=== PATIENT | female | born 1995 | race Caucasian/White ===

== ENCOUNTER 2016-05-03 08:50 | Inpatient (IN) | payer OTHER ==
[~2016-05-03] VITALS: Ht 165.1 cm; Wt 84.5 kg
[2016-05-03] MEDS ORDERED: LACTATED RINGER'S 1000ML 1,000 ML IV PRN (09:48)
[2016-05-03] MEDS: LACTATED RINGER'S 1000ML 1,000 ML IV SCH ×2 (09:48→15:55)
[2016-05-03] MEDS ORDERED: LACTATED RINGER'S 1000ML 500 ML IV PRN ×2 (10:02→13:58)
[2016-05-03] MEDS ORDERED: OXYTOCIN 30 UNITS/500ML NSS IV PRN ×2 (10:15→22:15)
[2016-05-03 10:53] LABS: HEMATOCRIT 36.2 % (37-47); MEAN CELL VOLUME 90.5 fL (80-100); MEAN CORPUSCULAR HEMOGLOBIN 29.8 pg (25-34); MEAN CORPUSCULAR HGB CONC 32.9 g/dl (32-36); PLATELET COUNT 181 K/uL (130-400); WHITE BLOOD COUNT 9.15 K/uL (4.8-10.8)
[2016-05-03 11:09] VITALS: Ht 165.1 cm; Wt 84.5 kg
[2016-05-03] MEDS ORDERED: FOLIC ACID (11:15)
[2016-05-03] MEDS ORDERED: EpHEDrine SULFATE INJ 50 MG/ML AMP ONE (13:46)
[2016-05-03] MEDS ORDERED: BUPIVACAINE 0.25% 30 ML VIAL ONE (13:46)
[2016-05-03] MEDS ORDERED: FENTANYL 2MCG/ML ROPIV 1.25MG/ML 100ML BAG EPI ONE (13:47)
[2016-05-03] MEDS ORDERED: FENTANYL CITRATE INJ 50 MCG/1 ML 2 ML VIAL ONE (13:47)
[2016-05-03] MEDS ORDERED: NALOXONE HCL INJ 1 MG in SODIUM CHLORIDE 0.9% 1000ML 1,000 ML IV PRN (13:58)
[2016-05-03] MEDS ORDERED: ONDANSETRON INJ 2 MG/ML 2 ML VIAL IV PRN (14:00)
[2016-05-03] MEDS ORDERED: NALBUPHINE HCL INJ 10 MG/ML AMP IV PRN (14:00)
[2016-05-03] MEDS ORDERED: NALOXONE HCL INJ 0.4 MG/1 ML VIAL/CARP IV PRN (14:00)
[2016-05-03] MEDS ORDERED: EpHEDrine SULFATE INJ 50 MG/ML AMP IV PRN (14:00)
[2016-05-03] MEDS ORDERED: FENTANYL 2MCG/ML ROPIV 1.25MG/ML 100ML BAG EPI PRN (14:00)
[2016-05-03] MEDS ORDERED: DiphenhydrAMINE HCL 50 MG/ML VIAL IV PRN (14:00)
[2016-05-03] MEDS ORDERED: LANOLIN OINT EXT PRN ×2 (22:15)
[2016-05-03] MEDS ORDERED: ACETAMINOPHEN/CODEINE 300/30MG TAB PO PRN ×2 (22:15)
[2016-05-03] MEDS ORDERED: BENZOCAINE 20% AER SPR 82.5 GM CAN EXT PRN (22:15)
[2016-05-03] MEDS ORDERED: SUPERCREAM 0.870 % 15GM JAR EXT PRN (22:15)
[2016-05-03] MEDS ORDERED: HYDROCORTISONE ACETATE 25 MG SUPP PR PRN (22:15)
[2016-05-03 22:42] LABS: BASO % 0.1 %; BASO ABS # 0.02 K/uL (0-0.2); COMPLETE YES; HEMATOCRIT 28.4 % (37-47); IG% 0.2 %; LYMPH % 5.3 %; LYMPH ABS # 1.14 K/uL (1.2-3.4); MEAN CELL VOLUME 89.6 fL (80-100); MEAN CORPUSCULAR HGB CONC 33.5 g/dl (32-36); MEAN PLATELET VOLUME 13.4 fL (7.4-10.4); MONO % 7.7 %; NEUT % 86.7 %; PLATELET COUNT 175 K/uL (130-400); RED BLOOD COUNT 3.17 M/uL (4.2-5.4); WHITE BLOOD COUNT 21.36 K/uL (4.8-10.8)
[2016-05-03] MEDS ORDERED: IBUPROFEN 600 MG TAB ONE (23:57)
--- NOTE | 2016-05-04 01:09 | DELIVERY SUMMARY ---
DATE OF OPERATION: 05/03/2016 DELIVERING SURGEON: Dr. Ortega. PREDELIVERY DIAGNOSES: 1. A 20-year-old G1, P0, at 40 weeks, 6 days. 2. premature rupture of membranes. POSTDELIVERY DIAGNOSIS: Same. FINDINGS: Viable female , Apgars 8 and 8, weight pending. ESTIMATED BLOOD LOSS: 400 mL. PROCEDURE: Spontaneous vaginal delivery with repair of bilateral sulcal tears and second-degree perineal repair. COMPLICATIONS: None. DETAILS OF PROCEDURE: The patient progressed to complete with epidural analgesia, she then pushed and spontaneously vaginally delivered a viable female with Apgars 8 and 8 and the baby delivered in the occiput anterior position. The head was allowed to restitute to a left occiput anterior position. The mother pushed and the anterior shoulder delivered followed by the posterior shoulder. Baby was placed on mother's abdomen where the cord was doubly clamped and cut. A spontaneous cry was heard. A cord segment was retained for cord gases. Cord blood was obtained. The placenta delivered spontaneously, intact with a 3-vessel cord. Pitocin was given and the uterus became firm. The uterus and vagina were swept for all clots and debris. The cervix, vagina and perineum were inspected and bilateral sulcal tears and a second-degree perineal tear were noted and repaired in standard fashion with 3-0 Vicryl. Excellent hemostasis was observed. At the conclusion of the delivery, all sponge, instrument and needle counts were correct x2. The mother and baby recovered well in the room in stable and good condition. I attest to the content of the Intraoperative Record and any orders documented therein. Any exceptio ns are noted below.
[2016-05-04 03:19] VITALS: BP 108/59; PULSE 113; TEMP 37
[2016-05-04 07:56] VITALS: BP 90/55; PULSE 105; TEMP 37; O2SAT 97
[2016-05-04] MEDS: DOCUSATE SODIUM 100 MG CAP PO SCH ×2 (08:57→21:07)
--- NOTE | 2016-05-04 11:28 | Anesthesia Procedure Note ---
Anesthesia Epidural Removal Nt Date & Time May 04, 2016 at 11:28 Vital Signs Pain Intensity: 3.0 Vital Signs Past 12 Hours Date Time Temp Pulse Resp B/P Pulse Ox O2 Delivery O2 Flow Rate FiO2 05/04/16 08:00 Room Air 05/04/16 07:56 37.0 105 16 90/55 97 Room Air 05/04/16 03:21 Room Air 05/04/16 03:19 37.0 113 18 108/59 Room Air Notes Mental Status: alert / awake / arousable, participated in evaluation Nausea / Vomiting: adequately controlled Pain: adequately controlled Airway Patency, RR, SpO2: stable & adequate BP & HR: stable & adequate Hydration State: stable & adequate Neuraxial Anesthesia: was administered Anesthetic Complications: no major complications apparent, pt satisfied with anesthetic care Epidural: removed without complications, with tip intact
[2016-05-04 12:00] VITALS: BP 114/75; PULSE 107; TEMP 36.9
[2016-05-04] MEDS: IBUPROFEN 600 MG TAB PO PRN ×2 (12:23→18:48)
[2016-05-04 15:57] VITALS: BP 127/77; PULSE 105; TEMP 36.9; O2SAT 98
[2016-05-04] MEDS ORDERED: BISACODYL 5 MG TABEC PO SCH (20:00)
[2016-05-04 20:10] VITALS: BP 115/76; PULSE 108; TEMP 36.8; O2SAT 98
[2016-05-04 23:45] VITALS: BP 117/76; PULSE 101; TEMP 36.7; O2SAT 100
--- NOTE | 2016-05-05 06:38 | Progress Note ---
Subjective May 05, 2016. Subjective conversation w/ patient, physical exam Ambulation: ambulating normally Voiding: no voiding problems Passing Gas: Yes Diet Tolerance: Regular Diet Lochia: Small Feeding Type: Breast Feeding Pain: No pain reported this morning Review of Systems Constitutional: No chills, No fever Respiratory: No cough, No shortness of breath Cardiac: No chest pain Breast: No breast pain Abdomen: No nausea, No pain, No vomiting Female : No dysuria Objective Vital Signs Date Time Temp Pulse Resp B/P Pulse Ox O2 Delivery O2 Flow Rate FiO2 05/04/16 23:45 36.7 101 18 117/76 100 Room Air 05/04/16 23:45 100 Room Air 05/04/16 20:10 36.8 108 20 115/76 98 Room Air 05/04/16 16:00 Room Air 05/04/16 15:57 36.9 105 16 127/77 98 Room Air 05/04/16 12:00 36.9 107 18 114/75 Room Air 05/04/16 08:00 Room Air 05/04/16 07:56 37.0 105 16 90/55 97 Room Air Physical Exam General Appearance: WELL-APPEARING, WD/WN, NO APPARENT DISTRESS Respiratory/Chest: lungs clear, normal breath sounds Cardiovascular: regular rate, rhythm, no gallop, no murmur Abdomen: normal bowel sounds, non tender, soft Fundus: Firm, Relation to Umbilicus (At umbilicus) Extremities: no calf tenderness Laboratory Results Last 24 Hours Test 05/04/16 06:46 Hemoglobin 7.4 g/dL Hematocrit 22.0 % Medications Current Inpatient Medications Medications (Trade) Dose Ordered Sig/Patty Route Start Time Stop Time Status Last Admin Dose Admin Lactated Ringer's (Lr 1000ml) 1,000 ml @ 125 mls/hr Q8H IV 05/03/16 09:48 05/05/16 09:47 05/03/16 15:55 125 MLS/HR Oxytocin (Pitocin IV) 30 units UD PRN IV 05/03/16 22:15 06/02/16 22:14 Benzocaine (Dermoplast Aero Spr) 1 appln PRN PRN EXT 05/03/16 22:15 06/02/16 22:14 Cocaine HCl (Supercream 0.870% Cr) BID PRN EXT 05/03/16 22:15 05/17/16 22:14 05/04/16 21:08 15 GM Hydrocortisone Acetate (Anusol Hc Supp) 25 mg BID PRN HI 05/03/16 22:15 06/02/16 22:14 Lanolin (Lanolin Oint) PRN PRN EXT 05/03/16 22:15 06/02/16 22:14 Ibuprofen (Motrin Tab) 600 mg Q4H PRN PO 05/03/16 22:15 06/02/16 22:14 05/04/16 18:48 600 MG Acetaminophen/ Codeine Phosphate (Tylenol w/ Codeine #3 Tab) 1 tab Q4H PRN PO 05/03/16 22:15 06/02/16 22:14 05/04/16 05:47 1 TAB Acetaminophen/ Codeine Phosphate (Tylenol w/ Codeine #3 Tab) 2 tab Q4H PRN PO 05/03/16 22:15 06/02/16 22:14 Bisacodyl (Dulcolax Supp) 10 mg DAILY PRN HI 05/05/16 07:00 Docusate Sodium (coLACE CAP) 100 mg BID PO 05/04/16 08:00 06/03/16 07:59 05/04/16 21:07 100 MG Assessment and Plan Post- Day#: 1 Continue Routine Care: - Vital Signs reviewed and WNL (temp max 36.7) - Blood Type: O+, GBS- , Rubella Immune - Patient doing well clinically - Encourage Ambulation today - Pain well controlled with Motrin - Tolerating PO Diet - Discharge today Resident Physician Supervision Note: I interviewed and examined the patient. Discussed with Dr. Llanos and agree with findings and plan as documented in the note. Any exceptions or clarifications are listed here: [None] Documented By: [place]
--- NOTE | 2016-05-05 06:40 | Discharge Instructions ---
Discharge Instructions Admission Reason for Admission: R/O Ruptured Membranes Discharge Discharge Diagnosis / Problem: Vaginal Delivery Discharge Goals Goal(s): Routine recovery after delivery Medications Continue Dispensed Medications: supercream, dermaplast, tucks, lansinoh Activity Recommendations Activity Limitations: per Instructions/Follow-up section . Instructions / Follow-Up Instructions / Follow-Up ACTIVITY RECOMMENDATIONS: * Gradual return to full activity over the next 2-3 weeks. * No lifting - nothing heavier than baby over the next 2-3 weeks. * Do not engage in vigorous exercise, sexual activity or sports until cleared by your physician. * Do not drive or operate any motorized equipment until cleared by your physician. * You may shower/bathe daily. MEDICATIONS: For discomfort or pain, you may use Acetaminophen (Tylenol), Ibuprofen (Advil), or Naproxen (Aleve) following the package directions. For constipation you may use Colace following the package directions. BREAST CARE: If you are not breast feeding: * Wear a supportive bra 24 hours a day for one to two weeks. * Avoid stimulating your breasts and nipples as much as possible during the first few weeks after delivery. * When taking a shower, have the warm water hit your back, not breasts. * When your breasts feel full, apply ice packs. Usually three to four times a day helps ease the discomfort. * Take a mild pain medication (Tylenol / Motrin) when you are uncomfortable. If breast feeding: * Use breast milk to lubricate nipples. Lansinoh cream may be used for sore nipples. You do not need to remove cream prior to breast feeding. If using a different brand of cream, check the label for directions regarding removal of cream prior to nursing. * Wear a supportive bra. * If having problems with breasts or breast feeding, call a medical record consultant or your health care provider. EPISIOTOMY CARE: After delivery, if you have an episiotomy (stitches), the following steps will ease discomfort and aid healing. * For the first 24 hours after delivery, place ice packs next to your episiotomy to help reduce swelling. * After the first 24 hour-period, sitz baths, either portable or in the tub, are suggested. A shower with a shower arm sprayed over the episiotomy may be comforting. * Sudha care should be done after each voiding and bowel movement. Squirt warm water from a plastic bottle over the perineum (region of the body between the anus and urinary opening) and pat dry. * Use Dermoplast to ease discomfort. Shake container. [place] directly over the episiotomy. Place a Tucks on a clean sanitary pad next to your episiotomy. SPECIAL CARE INSTRUCTIONS: When you are discharged from the hospital, it is important for you to follow the instructions listed below: * During the first week at home, you should be able to care for yourself and your baby. In addition, the usual light household activities are encouraged. * Limit your activities to the way you feel. Do not try to clean the house or move furniture. Be sensible. * If you actively engage in sports and have done so up until the time of your delivery, you may resume these activities as soon as you feel able. This may take up to one month or even longer. Use good judgment. * Continue to take your vitamins for at least six weeks after the of your baby. * Your diet need not be limited unless you were on a special diet before your delivery. Breast-feeding mothers need around 2500 calories per day and at least 64-80 ounces of fluid per day (8 to 10 glasses). * You should eat foods from the four major food groups. Crash diets or fad diets are to be avoided. Eating lean meats, fresh fruits and vegetables, low-fat dairy products, high fiber foods and a regular exercise program, will help you get back to your pre- weight without putting your health at risk. * Constipation is sometimes a problem after delivery. Take a mild laxative as needed. If breast feeding, Milk of Magnesia is acceptable to use. You may use a suppository or Fleets enema if no episiotomy. * A daily shower or tub bath is suggested. Be sure to thoroughly and gently dry the perineum. * A bloody vaginal discharge will usually continue until around four weeks post . A small amount of bleeding may continue for as long as six weeks. Vaginal discharge changes from the bright red bleeding after delivery to pink then brownish and finally yellowish-pink before becoming white and disappearing. * Bleeding may increase with activity. Your first period may come in 4-8 weeks. If you are breast feeding, your period may be delayed even longer. * [place] (sex) can begin whenever both you and your partner feel comfortable and do not have any form of genital infection. It is recommended that you wait at least six weeks for internal and external healing to occur. If you have questions, please talk to your health care practitioner. A condom should be used to prevent infection and . * Foreplay, gentle intercourse and lubrication is very important the first several times to prevent pain. A water-based lubricant such as K-Y jelly or Astroglide may be used. * If you have RH negative blood and your baby is RH positive, you will receive RHOGAM by injection prior to discharge. The nurse will give you a card to keep with you that has the date and place that you received RHOGAM after delivery. * During your care, you had a Rubella screen done to check for the presence of rubella antibodies in your blood. If your test was negative, you will receive a Rubella vaccine prior to discharge. This vaccine may cause a fever, soreness at the injection site and flu-like symptoms. If these symptoms persist, notify your health care practitioner. is not advised for one month after a Rubella vaccine. * Verbalizes understanding of car seat law as reviewed with patient nursing. * Car Seat hand-out given and reviewed with patient by nursing. * Shaken baby information reviewed with patient by nursing. Call you doctor if: * Heavy bleeding (saturating several pads an hour) or passing clots the size of your fist. * A fever >101 degrees F (38.3 degrees C) on two occasions four hours apart and /or chills. * Unusual pain in the pelvic or vaginal areas. * "Baby Blues" lasting longer than two weeks. If you have any questions or concerns, call your health care practitioner at . FOLLOW UP VISIT: * Please call the office at to schedule a 6 week examination. It is important you keep this appointment. It is important for you to make arrangements for either yearly or twice yearly check-ups thereafter. Current Hospital Diet Patient's current hospital diet: Regular OB Diet Discharge Diet Recommended Diet: Regular Diet Pending Studies Studies pending at discharge: no Medical Emergencies . Who to Call and When: Medical Emergencies: If at any time you feel your situation is an emergency, please call 911 immediately. . Non-Emergent Contact Non-Emergency issues call your: Broadcast Operations Technician . . "Provider Documentation" section prepared by Fabien Llanos. VTE Core Measure Inpt VTE Proph given/why not?: Treatment not indicated
[2016-05-05] MEDS ORDERED: BISACODYL 10 MG SUPP PR PRN (07:00)
[2016-05-05 08:20] VITALS: BP 116/75; PULSE 106; TEMP 36.9; O2SAT 98
[2016-05-05] MEDS: DOCUSATE SODIUM 100 MG CAP PO SCH (08:23)
[2016-05-05] MEDS: IBUPROFEN 600 MG TAB PO PRN (08:28)
[2016-05-05] MEDS ORDERED: ESCITALOPRAM OXALATE 20 MG TAB PO SCH (09:00)
[2016-05-05 10:30] VITALS: BP_DIAS 75; PULSE 106; TEMP 36.9
== END 2016-05-05 12:00 | disposition home or self-care (01) | DRG 775 ==
LOC: C.OPB 08:50 → C.LD 08:50 → C.OPB 10:00 → C.LD 10:00 → C.MS4N 05-04 01:58
PROVIDERS: ADMIT Obstetrics & Gynecology; ATTEND Obstetrics & Gynecology
PROC: 0KQM0ZZ Repair Perineum Muscle, Open Approach (ICD-10-PCS; principal; 2016-05-03)
PROC: 3E033VJ Introduction of Other Hormone into Peripheral Vein, Percutaneous Approach (ICD-10-PCS; principal; 2016-05-03)
PROC: 10E0XZZ Delivery of Products of Conception, External Approach (ICD-10-PCS; principal; 2016-05-03)
DX: O42.02 Full-term premature rupture of membranes, onset of labor within 24 hours of rupture (principal); O70.1 Second degree perineal laceration during delivery; O48.0 Post-term pregnancy; Z37.0 Single live birth; Z3A.40 40 weeks gestation of pregnancy

== ENCOUNTER → 2016-07-21 | Outpatient (CLI) | payer OTHER ==
[2016-07-21 10:47] LABS: PREG INTERNAL NEGATIVE QC NEG CLEAR BACKGROUND; PREG INTERNAL POSITIVE QC POS CONTROL LINE
== END | disposition home or self-care (01) ==
LOC: C.LAB1850 09:46
PROVIDERS: ATTEND Obstetrics & Gynecology
DX: Z30.430 Encounter for insertion of intrauterine contraceptive device (principal)

== ENCOUNTER 2017-02-04 16:52 | Emergency (ER) | payer OTHER ==
[~2017-02-04] VITALS: Ht 165.1 cm; Wt 73.2 kg
[2017-02-04 16:56] VITALS: TEMP 37.1; Ht 165.1 cm; Wt 73.2 kg
--- NOTE | 2017-02-04 17:22 | EMERGENCY ROOM VISIT NOTE ---
ED Visit Note First contact with patient: 17:02 CHIEF COMPLAINT: Laceration on left hand between fourth and fifth fingers just prior to arrival HISTORY OF PRESENT ILLNESS: Patient is a [id number] 21-year-old white female who presents to emergency department for evaluation of a laceration to the left hand. She was pushing down garbage in her garbage can, and accidentally struck the hand on the sharp edge of a metal can lid, causing the laceration described below. She rates her pain a 0/10. She applied ice to the area. The bleeding stopped shortly after the injury and there is no weakness or numbness of the hand or fingers. REVIEW OF SYSTEMS: Review of systems as per HPI. All other systems reviewed were negative. At least 6 systems reviewed. PMH: Electronic medical records are reviewed and summarized as above/below. See Problem List. Tetanus is up-to-date. SOCIAL HISTORY: Patient lives at home with her and daughter. Nonsmoker. PHYSICAL EXAM: Vital Signs: Reviewed Nurse's notes. There is a 2 cm long laceration in the webspace between the left fourth and fifth fingers. The edges are gaping widely apart. There is no foreign material in the wound and it looks clean. There is no active bleeding. No deep structures such as tendons or nerves are seen in the base of the wound. Extension and flexion of the third and fourth fingers is full and strong. Sensation to pain and light touch is intact. EMERGENCY DEPARTMENT COURSE: Using sterile technique, saline and Betadine cleansing, and 1% lidocaine anesthesia, the laceration was irrigated with saline and then repaired with 8, 5-0 nylon sutures. She does not have any evidence for nerve or tendinous injury. Bacitracin and a light dressing were applied. Wound care measures were discussed. She is discharged home in good condition. Medication reconciliation: I attest that I have personally reviewed the patient' s current medication list. Blood pressure screening : Patient was found to have normal blood pressure on screening and does not require follow-up. Problem List Medical Problems: (1) PROM (premature rupture of membranes) Status: Resolved Surgical Problems: (1) S/P ACL reconstruction Status: Resolved Current/Historical Medications Unable to Obtain Active Prescriptions or Reported Meds Allergies Coded Allergies: No Known Allergies (Unverified , 05/03/16) Vital Signs Date Time Temp Pulse Resp B/P (MAP) Pulse Ox O2 Delivery O2 Flow Rate FiO2 02/04/17 18:06 70 20 118/80 100 02/04/17 16:56 37.1 70 20 118/80 100 Room Air Departure Information Impression Primary Impression: Hand laceration Prescriptions Unable to Obtain Active Prescriptions or Reported Meds Referrals No Doctor, Assigned (PCP) Patient Instructions [facility] Additional Instructions Keep wound clean and dry. Do not allow any crusting or dried blood to accumulate on sutures. If this occurs, use a 1:1 solution of hydrogen peroxide/ water on a Q-tip to clean the wound. Use an antibiotic ointment for 3-4 days, then let wound dry. Suture removal in 12-14 days. Return sooner for any signs of infection (increasing redness, swelling, drainage). Ice and elevate for swelling and pain. Ibuprofen 600 mg and Tylenol 1000 mg every 6 hrs for pain.
[2017-02-04] MEDS ORDERED: XYLOCAINE 1%/SOD BICARB 20 ML VIAL INFIL ONE (17:30)
[2017-02-04 18:06] VITALS: BP 118/80; PULSE 70; O2SAT 100
== END 2017-02-04 18:07 | disposition home or self-care (01) ==
LOC: C.EDB 16:53 → C.EDD 18:07
DX: S61.412A Laceration without foreign body of left hand, initial encounter (principal); W26.8XXA Contact with other sharp object(s), not elsewhere classified, initial encounter; Y93.89 Activity, other specified; Y99.8 Other external cause status; Z98.890 Other specified postprocedural states

== ENCOUNTER 2018-12-05 07:27 | Inpatient (IN) ==
[2018-12-05] MEDS ORDERED: OXYTOCIN 30 UNITS/500 ML BAG IV PRN ×3 (08:04→19:41)
--- NOTE | 2018-12-05 08:23 | History & Physical Report ---
Date of Service December 05, 2018 Assessment & Plan (1) Elective induction of labor planned: EFM placed. Pitocin started; will place epidural when regular contraction pattern appears; planned AROM following epidural. Anticipate . History of Present Illness Primary Care Provider: Ashleigh is a 23 yo presenting to L & D today for a planned IOD at 39w 6d. A diamond bulb was placed in her cervix yesterday evening (12/04) for mechanical dilation; it fell out at midnight. is dated via LMP. No complications. Ashleigh has been attending OB appointments with [facility]. Only medication consumed during this is her PNV. She feels occasional contractions. + Movement. no fluid loss. no vaginal blood loss. Labs - Blood type O+ - Antibody screen neg - Hg 11.1 - Hct 32.8 - Plt 248 - Rubella Immune - VDRL/RPR Non reactive - Gonorrhea neg - Chlamydia neg - HIV neg - HbSAg neg - GBS neg - Glucose tolerance x 2: WNL Allergies Allergy/AdvReac Type Severity Reaction Status Date / Time No Known Allergies Allergy Verified 12/05/18 07:51 Home Medications Home Medications Medication Instructions Recorded Confirmed Type vit no.[id number] 1 tab PO DAILY 12/04/18 12/05/18 History [ Vitamin] doxylamine succinate [Unisom 25 mg PO HS PRN 12/05/18 12/05/18 History (doxylamine)] Patient History Social History Preferred Language: Lithuanian [employer] Required: No Beliefs That Will Affect Care: None marital status: Current Living Situation: Spouse and Family Current Living Situation Comment: lives with and daughter current occupational status: unemployed Feels Safe at Home: Yes Safety Concerns: Feels Safe At This Time Smoking Status: Never smoker Second Hand Exposure: No ; Hx Alcohol Use: No Hx Substance Use: No Review of Systems HEENT: No headache or blurry vision CV: No chest pain Lungs: No SOB; + cough (related to reflux) GI: No abdominal pain, constipation/diarrhea, some nausea this morning but not vomiting : No dysuria or burning with urination Physical Exam Physical Exam: General: Alert, oriented. No acute distress. Cardiac: Regular rate and rhythm, S1 and S2 appreciated. No murmurs/rubs/gallops. Respiratory: Clear to auscultation anterior and posteriorly, no wheezes/rales/rhonchi/crackles. No accessory muscle use. Symmetrical chest rise. Abdomen: Soft, nontender, nondistended. Normoactive bowel sounds throughout. Uterus: gravid cervical exam [3-4cm, 50% effacement, -2 station] soft and slightly posterior Lower Extremities: No lower extremity edema. No calf pain on compression. Results & Data Vital Signs (Past 12 Hours) Vital Signs Temp Pulse Resp BP 12/05/18 08:15 94 H 113/69 12/05/18 08:14 36.6 C 18 Code Status & VTE Plan VTE Prophylaxis Plan VTE Prophylaxis will be ordered: Yes Monitoring External Monitor Baseline HR: 140s moderate variability accels : 2, 15x15 in 20 min period no decels Supervising Physician Co-Signing Physician Notes Resident Physician Supervision Note: I interviewed and examined the patient. Discussed with Dr. Escobedo and agree with findings and plan as documented in the note. Any exceptions or clarifications are listed here: Agree with assessment. at 39 6/7 weeks for elective induction. uncomplicated. fetus category one. thelma prior to pitocin. Plan as stated above. Anticipate . Documented By: Vanessa Plata MD, FACOG Resident Activity Tracking Resident Involvement: Resident Care Provided Care Provided: OB Delivery
[2018-12-05 08:28] LABS: Hematocrit (blood only) 32.9 % (37-47); Hemoglobin 10.5 g/dL (12.0-16.0); Mean Platelet Volume 13.5 fL (7.4-10.4); Platelet Count 181 K/uL (130-400); RDW Coefficient of Variation 14.7 % (11.5-14.5); RDW Standard Deviation 45.2 fL (36.4-46.3); Red Blood Count 3.87 M/uL (4.2-5.4); White Blood Count 10.11 K/uL (4.8-10.8)
[2018-12-05 08:34] LABS: Mean Corpuscular Hgb Conc 31.9 g/dL (32-36)
[2018-12-05] MEDS: LACTATED RINGER'S 1,000 ML IV PRN ×2 (09:04→13:27)
[2018-12-05] MEDS ORDERED: fentaNYL citrate 100 MCG/2 ML VIAL ONE (13:00)
[2018-12-05] MEDS ORDERED: BUPIVACAINE 0.25% 30 ML VIAL ONE (13:00)
[2018-12-05] MEDS ORDERED: ePHEDrine sulfate 50 MG/ML AMP ONE (13:00)
[2018-12-05] MEDS ORDERED: fentaNYL 2MCG/ML ROPIV 1.25MG/ML 100 ML BAG EPI ONE (13:01)
--- NOTE | 2018-12-05 13:28 | Anesthesiology Consultation ---
Date of Service December 05, 2018 Assessment & Plan (1) Encounter for pre-operative examination: Chart Review Chart Review: Patient NOT seen in Pre Admission Testing and Acceptable Risk for Labor Epidural Consults Requested none ASA ASA2 Proposed Anesthesia Anesthesia Type: Labor Epidural Risk / Benefits Reviewed With: PT / POA / Parent / Guardian, Accepts Plan and Informed Consent Obtained History Height/Weight Height: 5 ft 4 in Weight: 88.451 kg Allergies Allergy/AdvReac Type Severity Reaction Status Date / Time No Known Allergies Allergy Verified 12/05/18 07:51 Medications Home Medications Medication Instructions Recorded Confirmed Last Taken vit no.[id number] 1 tab PO DAILY 12/04/18 12/05/18 Unknown [ Vitamin] doxylamine succinate [Unisom 25 mg PO HS PRN 12/05/18 12/05/18 12/03/18 21:00 (doxylamine)] Active Medications Generic Name Dose Route Start Last Admin Trade Name Freq PRN Reason Stop Dose Admin Lactated Ringer's 1,000 mls @ 125 mls/hr 12/05/18 08:04 12/05/18 13:27 Lr IV 12/07/18 08:03 125 mls/hr .Q8H PRN Administration L&D Protocol Protocol Oxytocin 30 units in 500 mls @ 13 mls/hr 12/05/18 08:04 12/05/18 12:30 Pitocin IV 12/07/18 08:03 0.78 units/hr .Q24H PRN 13 mls/hr Labor Induction/Augmentation Titration Protocol 0.78 UNITS/HR NPO Date Last Intake of Fluids: 12/05/18 Time Last Intake of Fluids: 13:26 Date Last Intake of Solids: 12/04/18 Time Last Intake of Solids: 06:30 Past Medical History Medical History depression ON ZOLOFT FOR 1 WEEK THEN RESOLVED Spontaneous vaginal delivery 2016 Varicella vaccination Exercise / Class Metabolic Activity II 4-5 Yardwork/Stairs/Walk up hill Past Family History Family History Other No pertinent family history Past Surgical History Surgical History H/O knee surgery PRIMARY REPAIR OF LEFT KNEE LIGAMENT CRUCIATE ANTERIOR History of oral surgery WISDOM TEETH REMOVAL Past Anesthesia History No Hx of Anesthesia Complications History of PONV No Hx of PONV and No Hx of Motion Sickness Social History Smoking Status: Never smoker Hx Alcohol Use: No Hx Substance Use: No substance use type: does not use Review of Systems Patient denies active symptoms of GERD. Patient denies history of abnormal bleeding or bleeding disorder. Patient denies active use of anticoagulants other than low dose aspirin. Patient denies numbness, tingling or weakness in lower extremities. Physical Exam Vital Signs Last Vital Signs Temp 37.1 C 12/05/18 11:13 Pulse 70 12/05/18 13:22 Resp 18 12/05/18 11:13 BP 114/59 L 12/05/18 13:17 Pulse Ox 98 12/05/18 13:22 Constitutional not obese (Gravid uterus) ENMT Mouth: no TMJ abnormality and oral opening not small Thyromental Distance: > or= 3.5 Finger Breadths Mallampati Class: II Neck normal visual inspection; neck extension not limited Respiratory normal respiratory effort Auscultation: lungs clear to auscultation bilaterally Cardiovascular Rate/Rhythm: regular rate and regular rhythm Heart Sounds: no murmur Neurologic moves all extremities Motor/Sensory: no sensory deficit Psychiatric Orientation: alert and oriented x 3 Testing Laboratory Results 12/05/18 08:20
[2018-12-05] MEDS ORDERED: DiphenhydrAMINE HCL 50 MG/ML VIAL IV PRN (14:06)
[2018-12-05] MEDS ORDERED: fentaNYL 2MCG/ML ROPIV 1.25MG/ML 100 ML BAG EPI PRN (14:06)
[2018-12-05] MEDS ORDERED: ePHEDrine sulfate 50 MG/ML AMP IV PRN (14:06)
[2018-12-05] MEDS ORDERED: NALOXONE HCL 1 MG in SODIUM CHLORIDE 0.9% 1000ML 1,000 ML IV PRN (14:06)
[2018-12-05] MEDS ORDERED: ONDANSETRON INJ 2 MG/ML 2 ML VIAL IV PRN (14:06)
[2018-12-05] MEDS ORDERED: NALOXONE HCL 0.4 MG/1 ML VIAL/CARP IV PRN (14:06)
[2018-12-05] MEDS ORDERED: NALBUPHINE HCL INJ 10 MG/ML AMP IV PRN (14:06)
--- NOTE | 2018-12-05 15:16 | Labor Progress Brief Note ---
Date of Service December 05, 2018 Subjective Comfortable after epidural. Assessment & Plan (1) with 39 completed weeks gestation: continue current plan. Fetus category one. Anticipate . Physical Exam Constitutional: WD/WN, vitals as above Genitourinary: cx--5/50/-2 arom--copious clear toco--q2-3, pit at 13 efm--130s wtih mod variaiblity, accels to 160s, no decels Results & Data Vital Signs (Past 12 Hours) Vital Signs Temp Pulse Resp BP Pulse Ox 12/05/18 15:12 82 100 12/05/18 15:10 93 H 89/50 L 12/05/18 15:09 68 88/48 L 12/05/18 15:07 67 96 12/05/18 15:05 68 98/54 L 12/05/18 15:02 70 95 12/05/18 15:00 16 12/05/18 14:59 65 98/55 L 12/05/18 14:57 69 97 12/05/18 14:54 66 98/57 L 12/05/18 14:52 69 96 12/05/18 14:49 68 97/53 L 12/05/18 14:47 80 97 12/05/18 14:45 66 104/54 L 12/05/18 14:42 74 97 12/05/18 14:40 67 101/59 L 12/05/18 14:37 69 97 12/05/18 14:35 71 117/59 L 12/05/18 14:32 73 97 12/05/18 14:30 18 12/05/18 14:29 69 102/57 L 12/05/18 14:27 72 98 12/05/18 14:24 76 104/55 L 12/05/18 14:22 70 97 12/05/18 14:20 73 107/60 12/05/18 14:17 75 98 12/05/18 14:16 74 104/59 L 12/05/18 14:15 16 12/05/18 14:12 75 99 12/05/18 14:07 76 107/62 98 12/05/18 14:06 83 109/59 L 12/05/18 14:03 71 111/58 L 12/05/18 14:02 81 98 12/05/18 14:01 76 116/63 12/05/18 14:00 16 12/05/18 13:59 75 107/65 12/05/18 13:58 76 100/69 12/05/18 13:57 77 98 12/05/18 13:55 81 113/56 L 12/05/18 13:52 77 98 12/05/18 13:50 82 18 121/59 L 12/05/18 13:47 93 H 100 12/05/18 13:42 79 98 12/05/18 13:37 71 99 12/05/18 13:32 80 100 12/05/18 13:27 75 99 12/05/18 13:22 70 98 12/05/18 13:17 71 114/59 L 99 12/05/18 13:08 80 108/62 12/05/18 11:59 86 102/57 L 12/05/18 11:13 37.1 C 87 18 101/59 L 12/05/18 11:12 88 89/54 L 12/05/18 11:11 78 84/52 L 12/05/18 10:00 88 107/67 12/05/18 09:03 92 H 131/66 12/05/18 08:15 94 H 113/69 12/05/18 08:14 36.6 C 18
--- NOTE | 2018-12-05 17:59 | Labor Progress Brief Note ---
Date of Service December 05, 2018 Subjective comfortable Assessment & Plan (1) with 39 completed weeks gestation: continue to increase pit. fetus category one. anticipate . Physical Exam Constitutional: WD/WN, vitals as above Genitourinary: cx--5-6/75/-2 toco--q2-4, pit at 15 efm--120s with mod variability, accels to 160s, no decels Results & Data Vital Signs (Past 12 Hours) Vital Signs Temp Pulse Resp BP Pulse Ox 12/05/18 17:52 67 96 12/05/18 17:50 64 98/54 L 12/05/18 17:47 66 98 12/05/18 17:43 78 90/45 L 12/05/18 17:42 82 97 12/05/18 17:37 67 96 12/05/18 17:32 67 96 12/05/18 17:28 66 94 12/05/18 17:27 69 95 12/05/18 17:22 67 94 12/05/18 17:21 67 103/52 L 12/05/18 17:17 73 96 12/05/18 17:12 70 96 12/05/18 17:07 83 98 12/05/18 17:05 76 100/55 L 12/05/18 17:02 65 95 12/05/18 17:00 37.2 C 18 12/05/18 16:57 67 94 12/05/18 16:55 71 94 12/05/18 16:52 74 95 12/05/18 16:50 67 94 12/05/18 16:47 70 95 12/05/18 16:42 71 97 12/05/18 16:37 73 96 12/05/18 16:36 69 100/58 L 12/05/18 16:35 71 94 12/05/18 16:32 68 96 12/05/18 16:30 75 16 93 12/05/18 16:27 66 96 12/05/18 16:22 73 97 12/05/18 16:21 88 109/57 L 12/05/18 16:17 95 H 98 12/05/18 16:12 83 99 12/05/18 16:07 82 96 12/05/18 16:06 68 98/54 L 12/05/18 16:05 68 94 12/05/18 16:02 68 94 08/14/19 16:00 70 18 94 12/05/18 15:57 81 95 12/05/18 15:52 70 95 12/05/18 15:51 69 101/50 L 12/05/18 15:47 69 94 12/05/18 15:46 70 93 12/05/18 15:42 91 H 97 12/05/18 15:37 78 97 12/05/18 15:35 72 102/59 L 12/05/18 15:32 91 H 97 12/05/18 15:30 16 12/05/18 15:27 81 96 12/05/18 15:22 80 97 12/05/18 15:20 93 H 102/61 12/05/18 15:17 107 H 125/76 97 12/05/18 15:12 37.2 C 82 16 100 12/05/18 15:10 93 H 89/50 L 12/05/18 15:09 68 88/48 L 12/05/18 15:07 67 96 12/05/18 15:05 68 98/54 L 12/05/18 15:02 70 95 12/05/18 15:00 16 12/05/18 14:59 65 98/55 L 12/05/18 14:57 69 97 12/05/18 14:54 66 98/57 L 12/05/18 14:52 69 96 12/05/18 14:49 68 97/53 L 12/05/18 14:47 80 97 12/05/18 14:45 66 104/54 L 12/05/18 14:42 74 97 12/05/18 14:40 67 101/59 L 12/05/18 14:37 69 97 12/05/18 14:35 71 117/59 L 12/05/18 14:32 73 97 12/05/18 14:30 18 12/05/18 14:29 69 102/57 L 12/05/18 14:27 72 98 12/05/18 14:24 76 104/55 L 12/05/18 14:22 70 97 12/05/18 14:20 73 107/60 12/05/18 14:17 75 98 12/05/18 14:16 74 104/59 L 12/05/18 14:15 16 12/05/18 14:12 75 99 12/05/18 14:07 76 107/62 98 12/05/18 14:06 83 109/59 L 12/05/18 14:03 71 111/58 L 12/05/18 14:02 81 98 12/05/18 14:01 76 116/63 12/05/18 14:00 16 12/05/18 13:59 75 107/65 12/05/18 13:58 76 100/69 12/05/18 13:57 77 98 12/05/18 13:55 81 113/56 L 12/05/18 13:52 77 98 12/05/18 13:50 82 18 121/59 L 12/05/18 13:47 93 H 100 12/05/18 13:42 79 98 12/05/18 13:37 71 99 12/05/18 13:32 80 100 12/05/18 13:27 75 99 12/05/18 13:22 70 98 12/05/18 13:17 71 114/59 L 99 12/05/18 13:08 80 108/62 12/05/18 11:59 86 102/57 L 12/05/18 11:13 37.1 C 87 18 101/59 L 12/05/18 11:12 88 89/54 L 12/05/18 11:11 78 84/52 L 12/05/18 10:00 88 107/67 12/05/18 09:03 92 H 131/66 12/05/18 08:15 94 H 113/69 12/05/18 08:14 36.6 C 18
[2018-12-05] MEDS ORDERED: OXYCODONE/ACETAMINOPHEN 5mg/325mg TAB PO PRN (19:31)
--- NOTE | 2018-12-05 19:36 | Delivery Summary ---
Vaginal Delivery Summary Date of Service December 05, 2018 Vaginal Delivery Summary Pre-operative Diagnosis: IUP at 39 weeks, desires elective induction Post-operative Diagnosis: same Procedure: pitocin induction, epidural, arom, , second degree laceration repair EBL: 300cc Aesthesia: epidural Procedure: The patient pushed for about 4 contractions to deliver a viable male infant in nichol position. The nose and mouth were bulb suctioned on the perineum and a nuchal cord times one reduced. The rest of the was then delivered without difficulty. The baby was vigorous. The nose and mouth were again bulb suctioned and the infant was placed in the maternal abdomen for drying and attention. Cord was clamped and cut at about one minute of life. Cord blood and segment obtained. Placenta delivered spontaneous, intact with a three vessel cord. Cervix/sulci/rectum were intact. A second degree perineal laceration was repaired in the normal standard fashion. Hemostasis obtained with dilute pitocin and fundal massage. Apgars were 8/9. Mother and baby doing well at the end of the delivery.
[2018-12-05] MEDS ORDERED: BENZOCAINE 20% AER SPR 82.5 GM CAN EXT PRN (19:41)
[2018-12-05] MEDS ORDERED: HYDROCORTISONE ACETATE 25 MG SUPP PR PRN (19:41)
[2018-12-05] MEDS ORDERED: BISACODYL 10 MG SUPP PR PRN (19:41)
[2018-12-05] MEDS ORDERED: SUPERCREAM 0.870% 15 GM JAR EXT PRN (19:41)
[2018-12-05] MEDS ORDERED: DIPHTHERIA/TETANUS/PERTUSSIS 0.5 ML SYR/VIAL IM ONE (19:41)
--- NOTE | 2018-12-05 21:39 | Anesthesia Procedure Note ---
Date of Service December 05, 2018 Anesthesia Post Epidural Note Vital Signs Vital Signs: Temp Pulse Resp BP Pulse Ox 36.6 C 83 18 108/54 L 98 12/05/18 19:31 12/05/18 21:30 12/05/18 20:15 12/05/18 21:30 12/05/18 19:12 Notes Mental Status: alert / awake / arousable and participated in evaluation Nausea / Vomiting: adequately controlled Pain: adequately controlled Airway Patency, RR, SpO2: stable & adequate BP & HR: stable & adequate Hydration State: stable & adequate Neuraxial Anesthesia: was administered and sensory block is resolving Anesthetic Complications: no major complications apparent and Pt Satisfied with anesthetic care Epidural: Removed without complications and With tip intact Notes: Epidural site clean, dry and intact. No signs of edema, erythema or bruising at insertion site. Pt instructed to request anesthesia if she has residual lower extremity numbness or if she develops lower extremity pain or weakness, back pain or headache.
[2018-12-05] MEDS: IBUPROFEN 600 MG TAB PO PRN (22:06)
[2018-12-05] MEDS: DOCUSATE SODIUM 100 MG CAP PO SCH (22:06)
[2018-12-06] MEDS: ACETAMINOPHEN 325 MG TAB PO PRN ×4 (01:10→23:33)
[2018-12-06] MEDS: IBUPROFEN 600 MG TAB PO PRN ×3 (03:45→20:06)
[2018-12-06 06:24] LABS: Hematocrit (blood only) 31.3 % (37-47); Hemoglobin 10.1 g/dL (12.0-16.0)
--- NOTE | 2018-12-06 06:27 | Obstetrical Progress Note ---
Date of Service <Mona Escobedo MD - Last Filed: 12/06/18 07:30> December 06, 2018 Assessment & Plan <Mona Escobedo MD - Last Filed: 12/06/18 07:30> (1) Status post vaginal delivery: AMANDA is a 23 yo G21 on PPD 1 after at 39w 6d. - GBS -, Blood Type O+ , Rubella immune -Vitals reviewed and WNL -Hemoglobin reviewed: 10.5 on admission, down to 10.1 -patient is doing clinically well Continue routine post-lida care (encourage ambulation, analgesia as needed, monitor lochia) - After discharge will have [address] Plata. Subjective <Mona Escobedo MD - Last Filed: 12/06/18 07:30> Ambulation: ambulating normally Voiding: no voiding problems Passing Gas:: Yes Diet Tolerance:: regular diet Lochia:: Moderate Current Pain Level(1-10): 4 examined at bedside; experiences increased pelvic cramping during breast feeding; discomfort improves with motrin Physical Exam <Mona Escobedo MD - Last Filed: 12/06/18 07:30> General Appearance: Alert, oriented. No acute distress. Cardiac: Regular rate and rhythm, S1 and S2 appreciated. No murmurs/rubs/gallops. Respiratory: Clear to auscultation anterior and posteriorly, no wheezes/rales/r honchi/crackles. No accessory muscle use. Symmetrical chest rise. Abdomen: Soft, nontender, nondistended. Normoactive bowel sounds throughout. Uterus: Uterine fundus firm, palpable 1 cm above umbilicus. Lower Extremities: No lower extremity edema. No calf pain on compression. Results & Data <Mona Escobedo MD - Last Filed: 12/06/18 07:30> Vital Signs (Past 12 Hours) Vital Signs Temp Pulse Pulse Resp BP BP Pulse Ox 12/06/18 03:40 36.4 C L 74 16 104/73 98 12/05/18 23:35 36.8 C 79 16 95/57 L 96 12/05/18 21:50 37.3 C 81 18 104/54 L 12/05/18 21:30 83 108/54 L 12/05/18 21:15 96 H 108/55 L 12/05/18 21:00 102 H 107/51 L 12/05/18 20:45 96 H 108/56 L 12/05/18 20:30 95 H 109/53 L 12/05/18 20:15 80 18 115/61 12/05/18 20:00 85 18 117/63 12/05/18 19:45 73 18 110/53 L 12/05/18 19:31 36.6 C 93 H 18 120/56 L 12/05/18 19:12 126 H 98 12/05/18 19:07 118 H 100 12/05/18 19:05 72 114/66 12/05/18 19:02 109 H 100 12/05/18 19:00 36.5 C 20 12/05/18 18:57 87 100 12/05/18 18:52 71 100 12/05/18 18:50 71 109/61 12/05/18 18:47 71 98 12/05/18 18:42 74 99 12/05/18 18:37 71 98 12/05/18 18:36 70 103/58 L 12/05/18 18:32 72 97 12/05/18 18:30 16 12/05/18 18:27 70 97 <Vanessa Plata MD, FACOG - Last Filed: 12/06/18 07:51> Co-Signing Physician Notes Resident Physician Supervision Note: I interviewed and examined the patient. Discussed with Dr. Escobedo and agree with findings and plan as documented in the note. Any exceptions or clarifications are listed here: Doing well. Routine care. Documented By: Vanessa Plata MD, FACOG Resident Activity Tracking <Mona Escobedo MD - Last Filed: 12/06/18 07:30> Resident Involvement: Resident Care Provided Care Provided: OB Delivery
[2018-12-06] MEDS: PRENATAL VITAMIN 1 TAB PO SCH (08:33)
[2018-12-06] MEDS: DOCUSATE SODIUM 100 MG CAP PO SCH ×2 (08:33→20:06)
[2018-12-06] MEDS ORDERED: BISACODYL 5 MG TABEC PO SCH (20:00)
[2018-12-07] MEDS: IBUPROFEN 600 MG TAB PO PRN (05:52)
--- NOTE | 2018-12-07 06:29 | Obstetrical Progress Note ---
Date of Service <Mona Escobedo MD - Last Filed: 12/07/18 06:55> December 07, 2018 Assessment & Plan <Mona Escobedo MD - Last Filed: 12/07/18 06:55> (1) Status post vaginal delivery: AMANDA is a 23 yo G21 on PPD 2 after at 39w 6d. - GBS -, Blood Type O+ , Rubella immune -Vitals reviewed and WNL -patient is doing clinically well Discharge instructions reviewed. Ready for d/c - After discharge will have [address] Plata. Subjective <Mona Escobedo MD - Last Filed: 12/07/18 06:55> Ambulation: ambulating normally Voiding: no voiding problems Passing Gas:: Yes Diet Tolerance:: regular diet Lochia:: Moderate Feeding Type:: breast feeding Current Pain Level(1-10): 1 examined at bedside Physical Exam <Mona Escobedo MD - Last Filed: 12/07/18 06:55> General Appearance: Found asleep in bed. No acute distress. Cardiac: Regular rate and rhythm, S1 and S2 appreciated. No murmurs/rubs/gallops. Respiratory: Clear to auscultation anterior and posteriorly, no wheezes/rales/rhonchi/crackles. No accessory muscle use. Symmetrical chest rise. Abdomen: Soft, nontender, nondistended. Normoactive bowel sounds throughout. Uterus: Uterine fundus firm, palpable 1 cm below umbilicus. Lower Extremities: No lower extremity edema. No calf pain on compression. Results & Data <Mona Escobedo MD - Last Filed: 12/07/18 06:55> Vital Signs (Past 12 Hours) Vital Signs Temp Pulse Resp BP Pulse Ox 12/06/18 23:30 36.7 C 75 16 96/66 L 98 12/06/18 19:55 36.8 C 79 16 110/67 96 <Mahogany Key MD, FACOG - Last Filed: 12/07/18 07:15> Co-Signing Physician Notes Resident Physician Supervision Note: I was present with Dr. Escobedo during the history and exam. I discussed the case with the resident and agree with the findings and plan as documented in the note. Any exceptions or clarifications are listed here: doing well, , ciera po, voiding, ready to go home. ff 2 down. nt. nt calves. ppd #2, d/c home, instructions reviewed. 6wk pp check. Documented By: Mahogany Key MD, FACOG Resident Activity Tracking <Mona Escobedo MD - Last Filed: 12/07/18 06:55> Resident Involvement: Resident Care Provided Care Provided: OB Delivery
[2018-12-07] MEDS: DOCUSATE SODIUM 100 MG CAP PO SCH (08:20)
[2018-12-07] MEDS: PRENATAL VITAMIN 1 TAB PO SCH (08:20)
== END 2018-12-07 11:00 | disposition home or self-care (01) | DRG 807 ==
LOC: 4S1 07:34 → 4S2 21:55